=== PATIENT | female | born 1940 | race Caucasian/White ===

== ENCOUNTER → 2018-02-13 | Outpatient (CLI) | payer MEDICARE ==
[2018-02-13 09:50] LABS: Blood Urea Nitrogen 11 mg/dL (7-17)
--- NOTE | 2018-02-13 13:48 | MR ---
EXAMINATION TYPE: MR brain wo/w con DATE OF EXAM: 02/13/2018 COMPARISON: HISTORY: Headache TECHNIQUE: Multiplanar, multisequence images of the brain and brainstem is performed without and with IV contras t, utilizing 5 mL intravenous Gadavist . FINDINGS: Diffusion weighted images demonstrate no evidence of a recent infarct or other diffusion ab normality. There is no extra-axial fluid collection. Confluent and scattered hyperintensities are pr esent in the periventricular, juxtacortical, subcortical and deep white matter on inversion recovery and T2-weighted sequences. Approximately 40 lesions are present. Largest in the left frontal white ma tter measures approximately 6-7 mm on axial image 20. The ventricular system and cisternal spaces are normal in size and appearance. The brain volume is age appropriate. There is a signal void on inversion recovery T2-weighted sequences which shows intermediate signal on T1-weighted images and enhancement on contrast administration along the region of the origin of the posterior inferior cerebellar artery, the abnormality measures approximately 11 mm x 8 mm x 6 mm caus es mass effect on the medulla from the left side at the base of the laura. 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 T2 hyperintense focus just lat eral to the temporomandibular joint on the right may represent a ganglion or meniscal cyst measuring 10 mm axial image 7. The orbits show symmetric appearance. Mild inflammatory change present within the ethmoid air cells r ight greater than left, maxillary sinus. Atrophy is likely age-related. 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 Nonspecif ic white matter demyelination could be due to chronic small vessel ischemia. There is age-related atr ophy. Indeterminate abnormality involving the temporal bone as described, additional findings above. Head CT may be of benefit. Sinus disease, mastoiditis. A Document Only message has been documented for Loraine Olson DO in the [employer] system on 02/13/2018 1:46 PM, Message ID [id number].
== END | disposition home or self-care (01) ==
LOC: RADMRIMAIN 09:17
PROVIDERS: ATTEND Family Medicine
DX: R51 Headache (principal); G81.90 Hemiplegia, unspecified affecting unspecified side
CPT/HCPCS: 82565; 84520; 70553; 36415; A9585

== ENCOUNTER → 2018-02-23 | Outpatient (CLI) | payer MEDICARE ==
--- NOTE | 2018-02-24 22:13 | MR ---
EXAMINATION TYPE: MR cervical spine wo con DATE OF EXAM: 02/23/2018 COMPARISON: None HISTORY: headaches, sharp pain in neck, unsteady gait TECHNIQUE: Multiplanar, multisequence images of the cervical spine were acquired. Cervical vertebra have normal alignment. There is degenerative disc space narrowing throughout the ce rvical spine and more at levels from C4 to C7. There are small posterior endplate spurs at C4-5 C5-6 C6-7. There is no spinal stenosis. There is developmentally adequate spinal canal. Cervical spinal co rd has normal signal pattern. There is no edema. Brainstem appears normal. There is no spinal stenosi s. There is no evidence of cervical paraspinal mass. There is mild hypertrophic facet arthropathy. IMPRESSION: Mild spondylotic multilevel changes. No fracture. No spinal stenosis.
== END | disposition home or self-care (01) ==
LOC: RADMRIMAIN 21:44
PROVIDERS: ATTEND Specialist
DX: M47.22 Other spondylosis with radiculopathy, cervical region (principal); R51 Headache
CPT/HCPCS: 72141

== ENCOUNTER 2022-08-13 14:57 | Observation (INO) | payer MEDICARE ==
[2022-08-13] MEDS ORDERED: IPRATROPIUM-ALBUTEROL 3 ML NEB INHALATION STA ×2 (15:43→18:31)
[2022-08-13] MEDS ORDERED: MORPHINE SULFATE 4 MG/ML SYRINGE IVP STA (15:43)
--- NOTE | 2022-08-13 15:44 | ED ---
Chest Pain HPI - General Chief Complaint: Chest Pain Stated Complaint: chest pain Time Seen by Provider: 08/13/22 15:07 Source: patient, RN notes reviewed, old records reviewed Mode of arrival: wheelchair Limitations: no limitations - History of Present Illness Initial Comments: This is a 39-year-old female to the emergency department for evaluation of chest pain. Patient. Patient of fall about 10 days ago where she landed on her chest wall and has had increasing pain with breathing and pain with palpation stents. Patient has not had any fevers but does have increased cough congestion was seen at her OB doctor and sent ER for further evaluation today MD Complaint: chest pain -: hour(s) Onset: during rest, during exertion Pain Location: substernal Pain Radiation: none Severity: moderate Severity scale (1-10): 7 Quality: sharp Consistency: constant Improves With: nothing Worsens With: nothing Other Symptoms: cough, palpitations Treatments Prior to Arrival: none - Related Data Allergies Allergy/AdvReac Type Severity Reaction Status Date / Time Penicillins Allergy Anaphylaxis Verified 08/13/22 15:04 Review of Systems ROS Statement: Those systems with pertinent positive or pertinent negative responses have been documented in the HPI. ROS Other: All systems not noted in ROS Statement are negative. EKG Findings - EKG Comments: EKG Findings:: EKG is sinus 93 NM 188 QRS 92 QTC 383 Past Medical History Past Medical History: Hypertension Additional Past Medical History / Comment(s): brain any History of Any Multi-Drug Resistant Organisms: None Reported Past Surgical History: Back Surgery Past Psychological History: No Psychological Hx Reported Smoking Status: Current every day smoker Past Alcohol Use History: Occasional Past Drug Use History: None Reported General Exam Limitations: no limitations General appearance: alert, in no apparent distress, anxious Head exam: Present: atraumatic, normocephalic, normal inspection Eye exam: Present: normal appearance, PERRL, EOMI. Absent: scleral icterus, conjunctival injection, periorbital swelling ENT exam: Present: normal exam, mucous membranes moist Neck exam: Present: normal inspection. Absent: tenderness, meningismus, lymphadenopathy Respiratory exam: Present: respiratory distress, wheezes, accessory muscle use, decreased breath sounds, prolonged expiratory. Absent: rales, rhonchi, stridor Cardiovascular Exam: Present: regular rate, normal rhythm, normal heart sounds. Absent: systolic murmur, diastolic murmur, rubs, gallop, clicks GI/Abdominal exam: Present: soft, normal bowel sounds. Absent: distended, te nderness, guarding, rebound, rigid Extremities exam: Present: normal inspection, full ROM, normal capillary refill. Absent: tenderness, pedal edema, joint swelling, calf tenderness Back exam: Present: normal inspection Neurological exam: Present: alert, oriented X3, CN II-XII intact Psychiatric exam: Present: normal affect, normal mood Skin exam: Present: warm, dry, intact, normal color. Absent: rash Course Vital Signs 08/13/22 08/13/22 08/13/22 14:59 16:15 16:23 Temperature 97.7 F Pulse Rate 96 71 76 Respiratory 24 18 18 Rate Blood Pressure 162/106 O2 Sat by Pulse 93 L Oximetry 08/13/22 08/13/22 16:28 17:41 Temperature Pulse Rate 75 69 Respiratory 20 18 Rate Blood Pressure 158/89 161/83 O2 Sat by Pulse 94 L 94 L Oximetry - Reevaluation(s) Reevaluation #1: 08/13/22 16:19 Medical record is reviewed Reevaluation #2: 08/13/22 16:19 Patient still has persistent pain here in the ER Reevaluation #3: 08/13/22 16:19 Patient informed results and questions answered Reevaluation #4: 08/13/22 16:19 Was pt. sent in by a medical professional or institution? @ -no Did you speak to anyone other than the patient for history? @ -no Did you review nursing and triage notes? @ -agree Were old charts reviewed? @ -no Differential Diagnosis? @ -prior EKG interpreted by me (3pts min.)? @ -yes X-rays interpreted by me (1pt min.)? @ -yes CT interpreted by me (1pt min.)? @ -yes negative for acute disease no PE U/S interpreted by me (1pt. min.)? @ -no What testing was considered but not performed? (CT, X-rays, U/S, labs)? Why? @ -no What meds were considered but not given? Why? @ -no Did you discuss the management of the patient with other professionals? @ -no Did you reconcile home meds? @ -no Was smoking cessation discussed for >3mins.? @ -no Was critical care preformed (if so, how long)? @ -no Were there social determinants of health that impacted care today? How? (Homelessness, low income, unemployed, alcoholism, drug addiction, transportation, low edu. Level, literacy, decrease access to med. care, residential, rehab)? @ -no Was there de-escalation of care discussed even if they declined? (Discuss DNR or withdrawal of care, Hospice)? @ -no What co-morbidities impacted this encounter? (DM, HTN, Smoking, COPD, CAD, Canc er, CVA, Hep., AIDS, mental health diagnosis, sleep apnea, morbid obesity)? @ -none Was patient admitted / discharged? @ -81 female to the emergency department for evaluation patient presents today for evaluation regards to chest pain. Patient was sent to ER by urgent care for evaluation of chest pain for computed tomography scan rule out PE no PE patient does have pleuritic changes we will admit for COPD exacerbation trending a mildly elevated troponin Admitted Undiagnosed new problem with uncertain prognosis? @ -no Drug Therapy requiring intensive monitoring for toxicity (Heparin, Nitro, Insulin, Cardizem)? @ -no Were any procedures done? @ -no Diagnosis/symptom? @ -Acute chest pain, rule out ACS, chest wall pain and pleurisy and COPD Acute, or Chronic, or Acute on Chronic? @ -Acute on chronic Uncomplicated (without systemic symptoms) or Complicated (systemic symptoms)? @ -complicated Side effects of treatment? @ -no Exacerbation, Progression, or Severe Exacerbation] @ -no Poses a threat to life or bodily function? @ -Cath of chest pain is ACS and COPD with hypoxia Reevaluation #5: 08/13/22 16:19 Differential Chest Pain: Stable Angina, Unstable Angina, STEMI, NSTEMI Aortic Dissection, Pneumothorax, Musculoskeletal, Esophageal Spasm GERD, Cholecystitis, Pancreatitis, Zoster, this is not meant to be an all-inclusive list. Differential Dyspnea: Coronary syndrome, arrhythmia, tamponade, asthma, COPD, pulmonary embolism, pneumonia, pneumothorax, pulmonary effusion, anaphylaxis, diabetic ketoacidosis, flailed chest, pulmonary contusion, diaphragmatic rupture, anemia, neuromuscular, this is not meant to be an all-inclusive list. Studies Chest x-ray interpreted by me as negative for acute disease CT angios chest interpreted by me is negative for PE or acute disease - Consultations Consultation #1: Spoke with Admitting physician to agree to admit the patient Chest Pain MDM - MDM 81 female to the ER for evaluation of chest pain anterior chest pain special she takes a deep breath and pleuritic-type chest pain. Patient be admitted for breathing treatment steroids and pain control Critical Care Time Critical Care Time: Yes Total Critical Care Time: 31 Disposition Clinical Impression: Atypical chest pain, Chest pain, Costochondritis, Acute exacerbation of chronic obstructive pulmonary disease (COPD), Pleurisy Disposition: ADMITTED IP TO THIS HOSP Condition: Good Is patient prescribed a controlled substance at d/c from ED?: No Referrals: Loraine Olson DO [Primary Care Provider] - 1-2 days Time of Disposition: 18:35
--- NOTE | 2022-08-13 16:10 | XR ---
EXAMINATION TYPE: XR chest 2V DATE OF EXAM: 08/13/2022 COMPARISON: None HISTORY: 81-year-old female with chest pain and shortness of breath TECHNIQUE: PA and lateral views FINDINGS: Heart normal size. Atherosclerotic arch calcifications. Hyperinflation with interstitial prominence. Suspected prominent skin fold projecting at the lower right lung. No consolidation or pleural effusio n. IMPRESSION: COPD. Prominent skinfold projecting at the right lower lung. No acute process seen.
[2022-08-13 16:44] LABS: ALT 16 U/L (4-34); AST 22 U/L (14-36); African American GFR (CKD) >90 (>60 ml/min/1.73 sqM); Albumin 4.3 g/dL (3.5-5.0); Alkaline Phosphatase 50 U/L (38-126); Anion Gap 5 mmol/L; Blood Urea Nitrogen 13 mg/dL (7-17); Calcium 9.4 mg/dL (8.4-10.2); Carbon Dioxide 29 mmol/L (22-30); Chloride 98 mmol/L (98-107); Glucose 93 mg/dL (74-99); Lipase 73 U/L (23-300); Magnesium 1.8 mg/dL (1.6-2.3); Non-African American GFR(CKD) 87 (>60 ml/min/1.73 sqM); Potassium 4.3 mmol/L (3.5-5.1); Sodium 132 mmol/L (137-145); Total Bilirubin 0.9 mg/dL (0.2-1.3)
[2022-08-13 16:50] LABS: Partial Thromboplastin Time 25.1 sec (22.0-30.0)
[2022-08-13 17:04] LABS: Basophils % (A) 0 %; Eosinophils # (A) 0.1 k/uL (0-0.7); Eosinophils % (A) 1 %; HGB 14.9 gm/dL (11.4-16.0); Lymphocytes # (A) 1.9 k/uL (1.0-4.8); Lymphocytes % (A) 19 %; MCH 30.8 pg (25.0-35.0); MCV 93.1 fL (80.0-100.0); Mean Platelet Volume 7.3; Monocytes # (A) 0.6 k/uL (0-1.0); Monocytes % (A) 6 %; Neutrophils # (A) 7.5 k/uL (1.3-7.7); Neutrophils % (A) 74 %; Platelet Count 323 k/uL (150-450); RBC 4.83 m/uL (3.80-5.40); RDW 14.5 % (11.5-15.5); WBC 10.2 k/uL (3.8-10.6)
--- NOTE | 2022-08-13 17:50 | CT ---
EXAMINATION TYPE: CT angio chest DATE OF EXAM: 08/13/2022 COMPARISON: 08/13/2022 HISTORY: 81-year-old female chest pain and SOB. Injury to chest x1 week ago TECHNIQUE: Contiguous axial scanning of the chest performed with IV Contrast, patient injected with 5 7 mL of Isovue 300. Coronal/sagittal MIP reconstructions performed. CT DLP: 183.3 mGycm Automated exposure control for dose reduction was used. FINDINGS: Heart normal size without pericardial effusion. No flattening of the interventricular septum or reflu x of contrast into hepatic veins. RCA coronary artery calcifications are present with mild aortic zoie vular calcifications. Moderate atherosclerotic calcifications aortic arch and descending thoracic aorta. Mixing artifacts a re noted. However, no dissection is seen. There is ectasia of the upper descending thoracic aorta 3.0 cm. Satisfactory opacification of the pulmonary arterial system. There is breathing motion artifact in th e lower lungs. Segmental and more distal arterial branches here are nondiagnostic due to the degree o f motion. No evidence for pulmonary embolus in the upper midlungs. There is an enlarged right hilar lymph node measuring 1.8 cm that may be reactive/post inflammatory. Reassess at a three-month follow-up. There is moderate diffuse bronchial wall thickening. Moderate to advanced emphysema is noted. No cons olidation or pleural effusion. Strandy atelectasis or scarring at the left lung base and also at the anterior right middle lobe. No consolidation or pleural effusion. Visualized upper abdomen shows bilateral renal calculi measuring up to 5 mm. Moderate atherosclerotic changes at the upper abdominal aorta. Possible severe stenoses at the proximal bilateral renal arter ies. Bones: Moderate degenerative disc disease mid to lower thoracic spine. Osteopenia. IMPRESSION: 1. COPD WITH MODERATE TO ADVANCED EMPHYSEMA. 2. BREATHING MOTION ARTIFACT LIMITING ASSESSMENT FOR PULMONARY EMBOLI IN THE LOWER LUNGS. THE SEGMENT AL AND MORE DISTAL ARTERIAL BRANCHES HERE ARE NONDIAGNOSTIC. OTHERWISE, NO EVIDENCE FOR PULMONARY EMB OLUS IN THE UPPER MID LUNGS. 3. AN ENLARGED 1.8 CM RIGHT HILAR LYMPH NODE MAY BE REACTIVE OR POSTINFLAMMATORY. THREE-MONTH FOLLOW- UP CT CHEST TO REASSESS. 4. MODERATE ATHEROSCLEROTIC CHANGES CONTINUE INTO THE UPPER ABDOMINAL AORTA. THERE MAY BE SEVERE BILA TERAL RENAL ARTERY STENOSES.
[2022-08-13] MEDS ORDERED: KETOROLAC 15 MG/ML 1 ML VIAL IVP STA (18:31)
[2022-08-13] MEDS ORDERED: methylPREDNISolone SOD SUCCI 125 MG/2 ML VIAL IV STA (18:31)
[2022-08-13] MEDS ORDERED: HYDROmorphone 1 MG/ML 1 ML SYRINGE IVP PRN (18:31)
[2022-08-13] MEDS ORDERED: HYDROmorphone 1 MG/ML 1 ML SYRINGE IVP STA (18:31)
[2022-08-13] MEDS ORDERED: SODIUM CHLORIDE 0.9% 1,000 ML IV STA ×2 (18:33)
[2022-08-13] MEDS ORDERED: SODIUM CHLORIDE 0.9% 500 ML 500 ML IV STA (18:33)
[2022-08-13] MEDS: ALBUTEROL NEBULIZED 2.5 MG/3 ML INHALATION SCH (20:04)
[2022-08-13] MEDS ORDERED: NALOXONE 0.4 MG/ML 1 ML VIAL IV PRN (20:26)
[2022-08-13] MEDS ORDERED: ONDANSETRON 4 MG/2 ML VIAL IVP PRN (20:26)
[2022-08-13] MEDS: SODIUM CHLORIDE 0.9% 1,000 ML IV SCH (20:30)
[2022-08-14] MEDS: methylPREDNISolone SOD SUCCI 125 MG/2 ML VIAL IV SCH ×4 (00:44→18:13)
[2022-08-14 06:36] LABS: Basophils % (A) 0 %; Eosinophils % (A) 0 %; HGB 15.3 gm/dL (11.4-16.0); Lymphocytes # (A) 0.8 k/uL (1.0-4.8); Lymphocytes % (A) 13 %; MCH 29.6 pg (25.0-35.0); MCHC 31.1 g/dL (31.0-37.0); MCV 95.3 fL (80.0-100.0); Mean Platelet Volume 7.4; Monocytes # (A) 0.1 k/uL (0-1.0); Monocytes % (A) 2 %; Neutrophils # (A) 5.1 k/uL (1.3-7.7); Neutrophils % (A) 84 %; Platelet Count 389 k/uL (150-450); RBC 5.15 m/uL (3.80-5.40); RDW 14.7 % (11.5-15.5); WBC 6.1 k/uL (3.8-10.6)
[2022-08-14 06:47] LABS: ALT 17 U/L (4-34); AST 22 U/L (14-36); African American GFR (CKD) >90 (>60 ml/min/1.73 sqM); Albumin 4.1 g/dL (3.5-5.0); Albumin/Globulin Ratio 1.5; Alkaline Phosphatase 49 U/L (38-126); Anion Gap 5 mmol/L; Blood Urea Nitrogen 15 mg/dL (7-17); Calcium 9.2 mg/dL (8.4-10.2); Carbon Dioxide 28 mmol/L (22-30); Chloride 102 mmol/L (98-107); Globulin 2.8 g/dL; Glucose 127 mg/dL (74-99); Magnesium 1.9 mg/dL (1.6-2.3); Non-African American GFR(CKD) >90 (>60 ml/min/1.73 sqM); Phosphorus 3.9 mg/dL (2.5-4.5); Sodium 135 mmol/L (137-145); Total Bilirubin 1.2 mg/dL (0.2-1.3); Total Protein 6.9 g/dL (6.3-8.2)
[2022-08-14 07:27] VITALS: RESP 18
[2022-08-14] MEDS ORDERED: IPRATROPIUM-ALBUTEROL 3 ML NEB INHALATION PRN (08:18)
[2022-08-14] MEDS: ALBUTEROL NEBULIZED 2.5 MG/3 ML INHALATION SCH (08:20)
[2022-08-14] MEDS: IPRATROPIUM-ALBUTEROL 3 ML NEB INHALATION SCH ×4 (08:28→20:05)
[2022-08-14] MEDS: SYMBICORT 160-4.5 MCG INHALER INHALATION SCH ×2 (08:44→20:05)
[2022-08-14] MEDS: SODIUM CHLORIDE 0.9% 1,000 ML IV SCH (10:07)
--- NOTE | 2022-08-14 10:31 | P.CRDCN ---
History of Present Illness History of present illness: HISTORY OF PRESENTING ILLNESS Patient is a pleasant 81-year-old female with a history of hypertension, tobacco abuse, COPD. Patient had a mechanical fall where she fell into her chest appro ximately 10 days ago. She states this was a mechanical fall. She has had chest pain since that time. Mainly chest pain worse with inspiration. She was having worsened chest pain and went to urgent care and recommended to go to ER. CT showed no significant fracture, COPD with advanced emphysema, 1.8 cm hilar lymph node, moderate atherosclerotic changes of the upper abdominal aorta and may be s evere bilateral renal artery stenosis. She was given something for pain which did help significantly however back to having significant pain. Admits to prior cardiac workup including stress test a few years ago however nothing recent. EKG showed sinus tachycardia with PACs. REVIEW OF SYSTEMS At the time of my exam: CONSTITUTIONAL: Denies fever or chills. CARDIOVASCULAR: +chest pain, +chronic shortness of breath, no orthopnea, PND or palpitations. RESPIRATORY: Denies cough. GASTROINTESTINAL: Denies abdominal pain, diarrhea, constipation, nausea or vomiting. MUSCULOSKELETAL: Denies myalgias. NEUROLOGIC: Denies numbness, tingling or weakness. ENDOCRINE: Denies fatigue, weight change, polydipsia or polyurina. GENITOURINARY: Denies burning, hematuria or urgency with micturation. HEMATOLOGIC: Denies history of anemia or bleeding. PHYSICAL EXAMINATION Vital signs reviewed. CONSTITUTIONAL: No apparent distress. HEENT: Head is normocephalic. Pupils are equal, round. Sclerae anicteric. Mucous membranes of the mouth are moist. No JVD. No carotid bruit. CHEST EXAMINATION: Lungs are clear to auscultation. + chest wall tenderness is noted on palpation and with deep breathing. HEART EXAMINATION: Regular rate and rhythm. S1, S2 heard. No murmurs, gallops or rub. ABDOMEN: Soft, nontender. Positive bowel sounds. EXTREMITIES: 2+ peripheral pulses, no lower extremity edema and no calf t enderness. NEUROLOGIC EXAMINATION: Patient is awake, alert and oriented x3. ASSESSMENT 1. Noncardiac, musculoskeletal chest pain related to recent fall 2. Recent fall, mechanical 3. COPD 4. Dyspnea 5. Atherosclerotic changes of the upper abdominal aorta, possible renal artery stenosis 6. Tobacco abuse 7. Sinus tachycardia related to pain PLAN Patient with atypical chest pain. Related to recent fall and noncardiac etiology. CT and troponins negative. Patient may be discharged home from a cardiology standpoint. If patient remains would perform echo for completeness. Follow-up outpatient in 1-2 weeks. Tobacco cessation advised. Past Medical History Past Medical History: Hypertension Additional Past Medical History / Comment(s): brain any History of Any Multi-Drug Resistant Organisms: None Reported Past Surgical History: Back Surgery Past Anesthesia/Blood Transfusion Reactions: No Reported Reaction Past Psychological History: No Psychological Hx Reported Smoking Status: Current every day smoker Past Alcohol Use History: Occasional Past Drug Use History: None Reported Medications and Allergies Home Medications Medication Instructions Recorded Confirmed Type Anxiety Med (Unknown) 1 tab PO HS 08/13/22 08/13/22 History Aspirin EC [Ecotrin Low Dose] 81 mg PO HS 08/13/22 08/13/22 History Blood Pressure Med (Unknown) 1 tab PO DAILY 08/13/22 08/13/22 History Bone Density Med (Unknown) 1 tab PO HS 08/13/22 08/13/22 History Calcium Carbonate [Calcium] 600 mg PO W/LUNCH 08/13/22 08/13/22 History Cetirizine HCl [Zyrtec] 10 mg PO HS 08/13/22 08/13/22 History Ergocalciferol (Vitamin D2) 1,250 mcg PO DIRECTED 08/13/22 08/13/22 History [Drisdol (50,000 Iu)] Magnesium Oxide [Magnesium] 500 mg PO W/LUNCH 08/13/22 08/13/22 History [place]-3/Dha/Epa/Fish Oil [Fish Oil 1 cap PO BID-W/MEALS 08/13/22 08/13/22 History 1,000 mg Softgel] Allergies Allergy/AdvReac Type Severity Reaction Status Date / Time Penicillins Allergy Anaphylaxis Verified 08/13/22 18:51 Physical Exam Vitals: Vital Signs Temp Pulse Pulse Resp BP BP Pulse Ox 08/14/22 08:41 92 08/14/22 08:21 92 08/14/22 08:00 90 18 08/14/22 07:00 97.9 F 90 18 162/74 90 L 08/14/22 03:51 97.9 F 86 17 131/68 90 L 08/14/22 02:11 75 18 08/13/22 21:27 97.6 F 75 18 159/69 91 L 08/13/22 21:01 98.4 F 72 18 137/88 97 08/13/22 20:22 70 08/13/22 20:08 71 20 08/13/22 17:41 69 18 161/83 94 L 08/13/22 16:28 75 20 158/89 94 L 08/13/22 16:23 76 18 08/13/22 16:15 71 18 08/13/22 14:59 97.7 F 96 24 162/106 93 L Intake and Output 08/13/22 08/14/22 08/14/22 22:59 06:59 14:59 Other: Voiding Method Toilet Toilet # Voids 1 Weight 48.081 kg Results 08/14/22 05:57 08/14/22 05:57 Cardiac Enzymes 08/13/22 08/13/22 08/13/22 Range/Units 16:19 16:19 21:10 AST 22 (14-36) U/L Troponin I 0.024 0.025 (0.000-0.034) ng/mL 08/13/22 08/14/22 Range/Units 23:39 05:57 AST 22 (14-36) U/L Troponin I 0.020 (0.000-0.034) ng/mL Coagulation 08/13/22 Range/Units 16:19 PT 11.0 (9.0-12.0) sec APTT 25.1 (22.0-30.0) sec CBC 08/13/22 08/14/22 Range/Units 16:19 05:57 WBC 10.2 6.1 (3.8-10.6) k/uL RBC 4.83 5.15 (3.80-5.40) m/uL Hgb 14.9 15.3 (11.4-16.0) gm/dL Hct 45.0 49.0 H (34.0-46.0) % Plt Count 323 389 (150-450) k/uL Comprehensive Metabolic Panel 08/13/22 08/14/22 Range/Units 16:19 05:57 Sodium 132 L 135 L (137-145) mmol/L Potassium 4.3 5.0 (3.5-5.1) mmol/L Chloride 98 102 (98-107) mmol/L Carbon Dioxide 29 28 (22-30) mmol/L BUN 13 15 (7-17) mg/dL Creatinine 0.57 0.48 L (0.52-1.04) mg/dL Glucose 93 127 H (74-99) mg/dL Calcium 9.4 9.2 (8.4-10.2) mg/dL AST 22 22 (14-36) U/L ALT 16 17 (4-34) U/L Alkaline Phosphatase 50 49 (38-126) U/L Total Protein 7.0 6.9 (6.3-8.2) g/dL Albumin 4.3 4.1 (3.5-5.0) g/dL Current Medications Generic Name Dose Route Start Last Admin Trade Name Freq PRN Reason Stop Dose Admin Albuterol/Ipratropium 3 ml 08/14/22 12:00 08/14/22 08:28 Ipratropium-Albuterol 3 Ml Neb INHALATION 3 ml RT-QID KIMBERLEY Administration Albuterol/Ipratropium 3 ml 08/14/22 08:18 Ipratropium-Albuterol 3 Ml Neb INHALATION RT-Q2H PRN Shortness Of Breath Or Wheezing Aspirin 81 mg 08/14/22 21:00 Aspirin 81 Mg PO HS [facility] Budesonide/Formoterol Fumarate 2 puff 08/14/22 20:00 08/14/22 08:44 Symbicort 160-4.5 Mcg Inhaler INHALATION 2 puff RT-BID KIMBERLEY Administration Calcium Carbonate/Glycine 500 mg 08/14/22 12:30 Calcium Carbonate 500 Mg Chewable PO W/LUNCH [facility] Ergocalciferol 1,250 mcg 08/14/22 09:45 Ergocalciferol 1,250 Mcg (50,000 Iu) Capsule PO DIRECTED [facility] Hydromorphone HCl 1 mg 08/13/22 18:31 Hydromorphone 1 Mg/Ml 1 Ml Syringe IVP Q4HR PRN Pain Sodium Chloride 1,000 mls @ 75 mls/hr 08/13/22 20:30 08/14/22 10:07 Saline 0.9% IV 75 mls/hr .[id number] KIMBERLEY Administration Loratadine 10 mg 08/14/22 21:00 Loratadine 10 Mg Tab PO HS [facility] Magnesium Oxide 400 mg 08/14/22 12:30 Magnesium Oxide 400 Mg Tab PO W/LUNCH KIMBERLEY Methylprednisolone Sodium Succinate 60 mg 08/14/22 00:00 08/14/22 05:41 Methylprednisolone Sod Succi 125 Mg/2 Ml Vial IV 60 mg Q6HR KIMBERLEY Administration Naloxone HCl 0.2 mg 08/13/22 20:26 Naloxone 0.4 Mg/Ml 1 Ml Vial IV Q2M PRN Opioid Reversal Non-Formulary Medication 1 tab 08/14/22 21:00 Anxiety Med (Unknown) PO HS KIMBERLEY Ondansetron HCl 4 mg 08/13/22 20:26 Ondansetron 4 Mg/2 Ml Vial IVP Q8HR PRN Nausea And Vomiting Intake and Output 08/13/22 08/14/22 08/14/22 22:59 06:59 14:59 Other: Voiding Method Toilet Toilet # Voids 1 Weight 48.081 kg 08/14/22 05:57 08/14/22 05:57
--- NOTE | 2022-08-14 10:32 | P.CNPUL ---
History of Present Illness Consult date: 08/14/22 Requesting physician: Erin Otto Reason for consult: dyspnea, chest pain Chief complaint: Anterior chest pain, shortness of breath History of present illness: This is a very pleasant 81-year-old female patient with a known history of hypertension and chronic and ongoing tobacco dependence of greater than 50 years. Approximately 10-11 days ago she had tripped and fell hitting her chest against a workbench. The pain initially somewhat subsided then recurred and she presented here to the emergency room yesterday for worsening pain on inhalation and shortness of breath. Chest x-ray revealed COPD but no acute pulmonary process. CT angiogram revealed evidence of COPD with moderate to advanced emphysema. Breathing motion artifact limited assessment of pulmonary emboli but there was no central emboli noted. There is an enlarged 1.8 cm right hilar lymph node possibly reactive but warrants follow-up. Severe bilateral renal artery stenosis. Moderate atherosclerotic changes in the upper abdominal aorta. White count 6.1. Hemoglobin 15.3. Platelets 389. Sodium 135. Potassium 5.0. Bicarb 20. BUN 15. Creatinine 0.48. Glucose 127. Troponins were negative 3. ProBNP 304. Lipase 73. She is seen today in consultation on the regular medical floor. She is currently sitting up in bed. She is uncomfortable with some anterior chest wall tenderness to palpation. Difficulty with deep inhalation. O2 saturation at 90% on room air. Afebrile. Review of Systems REVIEW OF SYSTEMS: CONSTITUTIONAL: Denies any recent significant weight loss or weight gain. EYES: Denies change in vision. EARS, NOSE, MOUTH, THROAT: Denies headaches, denies sore throat. CARDIOVASCULAR: Positive for anterior chest wall pain, no palpitations or syncopal episodes. RESPIRATORY: Positive for shortness of breath, cough, congestion no hemoptysis. GASTROINTESTINAL: Denies change in appetite, denies abdominal pain GENITOURINARY: Denies hematuria, denies infections. MUSKULOSKELETAL: Denies pain, denies swelling. INTEGUMENTARY: Denies rash, denies eczema. NEUROLOGICAL: Denies recent memory loss, no recent seizure activity. PSYCHIATRIC: Denies anxiety, denies depression. HEMATOLOGIC/LYMPHATIC: Denies anemia, denies enlarged lymph nodes. Past Medical History Past Medical History: Hypertension Additional Past Medical History / Comment(s): brain any History of Any Multi-Drug Resistant Organisms: None Reported Past Surgical History: Back Surgery Past Anesthesia/Blood Transfusion Reactions: No Reported Reaction Past Psychological History: No Psychological Hx Reported Smoking Status: Current every day smoker Past Alcohol Use History: Occasional Past Drug Use History: None Reported Medications and Allergies Home Medications Medication Instructions Recorded Confirmed Type Anxiety Med (Unknown) 1 tab PO HS 08/13/22 08/13/22 History Aspirin EC [Ecotrin Low Dose] 81 mg PO HS 08/13/22 08/13/22 History Blood Pressure Med (Unknown) 1 tab PO DAILY 08/13/22 08/13/22 History Bone Density Med (Unknown) 1 tab PO HS 08/13/22 08/13/22 History Calcium Carbonate [Calcium] 600 mg PO W/LUNCH 08/13/22 08/13/22 History Cetirizine HCl [Zyrtec] 10 mg PO HS 08/13/22 08/13/22 History Ergocalciferol (Vitamin D2) 1,250 mcg PO DIRECTED 08/13/22 08/13/22 History [Drisdol (50,000 Iu)] Magnesium Oxide [Magnesium] 500 mg PO W/LUNCH 08/13/22 08/13/22 History [place]-3/Dha/Epa/Fish Oil [Fish Oil 1 cap PO BID-W/MEALS 08/13/22 08/13/22 History 1,000 mg Softgel] Allergies Allergy/AdvReac Type Severity Reaction Status Date / Time Penicillins Allergy Anaphylaxis Verified 08/13/22 18:51 Physical Exam Vitals: Vital Signs Temp Pulse Pulse Resp BP BP Pulse Ox 08/14/22 08:41 92 08/14/22 08:21 92 08/14/22 08:00 90 18 08/14/22 07:00 97.9 F 90 18 162/74 90 L 08/14/22 03:51 97.9 F 86 17 131/68 90 L 08/14/22 02:11 75 18 08/13/22 21:27 97.6 F 75 18 159/69 91 L 08/13/22 21:01 98.4 F 72 18 137/88 97 08/13/22 20:22 70 08/13/22 20:08 71 20 08/13/22 17:41 69 18 161/83 94 L 08/13/22 16:28 75 20 158/89 94 L 08/13/22 16:23 76 18 08/13/22 16:15 71 18 08/13/22 14:59 97.7 F 96 24 162/106 93 L Intake and Output 08/13/22 08/14/22 08/14/22 22:59 06:59 14:59 Other: Voiding Method Toilet Toilet # Voids 1 Weight 48.081 kg GENERAL EXAM: Alert, frail 81-year-old female, on room air, fairly comfortable in no apparent distress. HEAD: Normocephalic. EYES: Normal reaction of pupils, equal size. NOSE: Clear with pink turbinates. THROAT: No erythema or exudates. NECK: No masses, no JVD. CHEST: No chest wall deformity. LUNGS: Equal air entry with few scattered rhonchi, diminished. CVS: S1 and S2 normal with no audible murmur, regular rhythm. ABDOMEN: No hepatosplenomegaly, normal bowel sounds, no guarding or rigidity. SPINE: No scoliosis or deformity SKIN: No rashes CENTRAL NERVOUS SYSTEM: No focal deficits, tone is normal in all 4 extremities. EXTREMITIES: There is no peripheral edema. No clubbing, no cyanosis. Peripheral pulses are intact. Results - Laboratory Findings CBC and BMP: 08/14/22 05:57 08/14/22 05:57 PT/INR, D-dimer PT 11.0 sec (9.0-12.0) 08/13/22 16:19 INR 1.0 (<1.2) 08/13/22 16:19 Abnormal lab findings: Abnormal Labs 08/13/22 08/14/22 08/14/22 16:19 05:57 05:57 Hct 49.0 H Lymphocytes # 0.8 L Sodium 132 L 135 L Creatinine 0.48 L Glucose 127 H - Diagnostic Findings Chest x-ray: image reviewed CT scan - chest: image reviewed Assessment and Plan Assessment: Acute anterior wall chest pain status post trauma secondary to trip and fall. No loss of consciousness. Acute exacerbation of chronic obstructive pulmonary disease Acute hypoxemic respiratory failure secondary to above Enlarged 1.8 cm right hilar lymph node possibly reactive or postinflammatory, to be followed up in the outpatient setting Chronic and ongoing tobacco dependence of greater than 50 years History of hypertension Renal artery stenosis Osteoporosis Plan: The patient was seen and evaluated Chest x-ray, CT chest, labs and medications reviewed Add DuoNeb inhalations, Symbicort, IV Solu-Medrol Add incentive spirometer and encourage increased use Add oxygen at 2 L/m per nasal cannula Titrate the FiO2 as tolerated Educated regarding the importance of complete smoking cessation NicoDerm patch will be offered Three-month follow-up computed tomography scan of the chest regarding right hilar lymph node We will continue to follow and make further recommendations based on her clinical status I have personally seen and examined the patient, performed the documentation and the assessment and plan as written. Number of minutes spent on the visit: 20.
[2022-08-14] MEDS: MAGNESIUM OXIDE 400 MG TAB PO SCH (12:52)
[2022-08-14] MEDS: CALCIUM CARBONATE 500 MG CHEWABLE PO SCH (12:53)
[2022-08-14] MEDS: NICOTINE 14MG/24HR PATCH TRANSDERM SCH ×2 (12:53→13:26)
[2022-08-14] MEDS ORDERED: NON FORMULARY DRUG (Omega-3/Dha/Epa/Fish Oil [Fish Oil 1,000 Mg Softgel] 1 EACH Capsule) PO SCH (17:30)
--- NOTE | 2022-08-14 18:11 | P.HPIM ---
History of Present Illness H&P Date: 08/13/22 Chief Complaint: Chest pain/dyspnea 81-year-old female patient with a known history of hypertension and chronic and ongoing tobacco dependence of greater than 50 years. Approximately 10-11 days ago she had tripped and fell hitting her chest against a workbench. The pain in itially somewhat subsided then recurred and she presented here to the emergency room yesterday for worsening pain on inhalation and shortness of breath. Chest x-ray revealed COPD but no acute pulmonary process. CT angiogram revealed evidence of COPD with moderate to advanced emphysema. Breathing motion artifact limited assessment of pulmonary emboli but there was no central emboli noted. There is an enlarged 1.8 cm right hilar lymph node possibly reactive but warrants follow-up. Severe bilateral renal artery stenosis. Moderate atherosclerotic changes in the upper abdominal aorta. White count 6.1. Hemoglobin 15.3. Platelets 389. Sodium 135. Potassium 5.0. Bicarb 20. BUN 15. Creatinine 0.48. Glucose 127. Troponins were negative 3. ProBNP 304. Lipase 73. Review of Systems REVIEW OF SYSTEMS: CONSTITUTIONAL: No fever, no malaise, no fatigue. HEENT: No recent visual problems or hearing problems. Denied any sore throat. CARDIOVASCULAR: No chest pain, orthopnea, PND, no palpitations, no syncope. PULMONARY: No shortness of breath, no cough, no hemoptysis. GASTROINTESTINAL: No diarrhea, no nausea, no vomiting, no abdominal pain. NEUROLOGICAL: No headaches, no weakness, no numbness. HEMATOLOGICAL: Denies any bleeding or petechiae. GENITOURINARY: Denies any burning micturition, frequency, or urgency. MUSCULOSKELETAL/RHEUMATOLOGICAL: Denies any joint pain, swelling, or any muscle pain. ENDOCRINE: Denies any polyuria or polydipsia. The rest of the 14-point review of systems is negative. Past Medical History Past Medical History: Hypertension Additional Past Medical History / Comment(s): brain any History of Any Multi-Drug Resistant Organisms: None Reported Past Surgical History: Back Surgery Past Anesthesia/Blood Transfusion Reactions: No Reported Reaction Past Psychological History: No Psychological Hx Reported Smoking Status: Current every day smoker Past Alcohol Use History: Occasional Past Drug Use History: None Reported Medications and Allergies Home Medications Medication Instructions Recorded Confirmed Type Aspirin EC [Ecotrin Low Dose] 81 mg PO HS 08/13/22 08/13/22 History Calcium Carbonate [Calcium] 600 mg PO W/LUNCH 08/13/22 08/13/22 History Cetirizine HCl [Zyrtec] 10 mg PO HS 08/13/22 08/13/22 History Ergocalciferol (Vitamin D2) 1,250 mcg PO DIRECTED 08/13/22 08/13/22 History [Drisdol (50,000 Iu)] Magnesium Oxide [Magnesium] 500 mg PO W/LUNCH 08/13/22 08/13/22 History [place]-3/Dha/Epa/Fish Oil [Fish Oil 1 cap PO BID-W/MEALS 08/13/22 08/13/22 History 1,000 mg Softgel] Metoprolol Succinate (ER) [Toprol 100 mg PO DAILY 08/14/22 08/14/22 History XL] Raloxifene HCl 60 mg PO DAILY 08/14/22 08/14/22 History Sertraline [Zoloft] 25 mg PO DAILY 08/14/22 08/14/22 History Allergies Allergy/AdvReac Type Severity Reaction Status Date / Time Penicillins Allergy Anaphylaxis Verified 08/13/22 18:51 Physical Exam Vitals: Vital Signs Temp Pulse Pulse Resp BP BP Pulse Ox 08/14/22 08:41 92 08/14/22 08:21 92 08/14/22 07:00 97.9 F 90 18 162/74 90 L 08/14/22 03:51 97.9 F 86 17 131/68 90 L 08/14/22 02:11 75 18 08/13/22 21:27 97.6 F 75 18 159/69 91 L 08/13/22 21:01 98.4 F 72 18 137/88 97 08/13/22 20:22 70 08/13/22 20:08 71 20 08/13/22 17:41 69 18 161/83 94 L 08/13/22 16:28 75 20 158/89 94 L 08/13/22 16:23 76 18 08/13/22 16:15 71 18 08/13/22 14:59 97.7 F 96 24 162/106 93 L Intake and Output 08/13/22 08/14/22 08/14/22 22:59 06:59 14:59 Other: Voiding Method Toilet # Voids 1 Weight 48.081 kg PHYSICAL EXAMINATION: GENERAL: The patient is alert and oriented x3, not in any acute distress. Well developed, well nourished. HEENT: Pupils are round and equally reacting to light. EOMI. No scleral icterus. No conjunctival pallor. Normocephalic, atraumatic. No pharyngeal erythema. No thyromegaly. CARDIOVASCULAR: S1 and S2 present. No murmurs, rubs, or gallops. PULMONARY: Chest is clear to auscultation, no wheezing or crackles. ABDOMEN: Soft, nontender, nondistended, normoactive bowel sounds. No palpable organomegaly. MUSCULOSKELETAL: No joint swelling or deformity. EXTREMITIES: No cyanosis, clubbing, or pedal edema. NEUROLOGICAL: Gross neurological examination did not reveal any focal deficits. SKIN: No rashes. Results CBC & Chem 7: 08/14/22 05:57 08/14/22 05:57 Labs: Abnormal Lab Results - Last 24 Hours (Table) 08/13/22 08/14/22 08/14/22 Range/Units 16:19 05:57 05:57 Hct 49.0 H (34.0-46.0) % Lymphocytes # 0.8 L (1.0-4.8) k/uL Sodium 132 L 135 L (137-145) mmol/L Creatinine 0.48 L (0.52-1.04) mg/dL Glucose 127 H (74-99) mg/dL Thrombosis Risk Factor Assmnt - Choose All That Apply Any of the Below Risk Factors Present?: Yes Each Factor Represents 1 point: Abnormal pulmonary function (COPD) Other Risk Factors: Yes Each Risk Factor Represents 3 Points: Age 75 years or older Other congenital or acquired thrombophilia - If yes, enter type in comment: No Thrombosis Risk Factor Assessment Total Risk Factor Score: 4 Thrombosis Risk Factor Assessment Level: Moderate Risk Assessment and Plan Assessment: 1. Acute chest pain Patient with atypical chest pain. Related to recent fall and noncardiac etiology. CT and troponins negative. - Cardiology is consulted; patient recommendations 2. Acute exacerbation COPD Add DuoNeb inhalations, Symbicort, IV Solu-Medrol Add incentive spirometer and encourage increased use 3. Acute hypoxic respiratory failure Add oxygen at 2 L/m per nasal cannula Titrate the FiO2 as tolerated 4. Enlarged hilar lymph node; likely reactive; pulmonary recommending repeat CT of the chest in 3 months 5. Hypertension; metoprolol 100 mg daily 6.Depression ; Zoloft 25 mg daily DVT prophylaxis; SCDs CODE STATUS; full code
[2022-08-14] MEDS ORDERED: ANXIETY MED PO SCH (21:00)
[2022-08-14] MEDS ORDERED: LORATADINE 10 MG TAB PO SCH (21:00)
[2022-08-14] MEDS ORDERED: ASPIRIN 81 MG PO SCH (21:00)
[2022-08-15] MEDS: methylPREDNISolone SOD SUCCI 125 MG/2 ML VIAL IV SCH ×3 (00:05→15:02)
[2022-08-15] MEDS: SODIUM CHLORIDE 0.9% 1,000 ML IV SCH ×2 (06:33→15:03)
[2022-08-15] MEDS: SYMBICORT 160-4.5 MCG INHALER INHALATION SCH (08:23)
[2022-08-15] MEDS: IPRATROPIUM-ALBUTEROL 3 ML NEB INHALATION SCH ×3 (08:23→15:57)
[2022-08-15 08:32] VITALS: BP 140/71; TEMP 97.9
[2022-08-15] MEDS ORDERED: METOPROLOL SUCCINATE (ER) 100 MG TAB.ER.24H PO SCH (09:00)
[2022-08-15] MEDS ORDERED: RALOXIFENE 60 MG TAB PO SCH (09:00)
[2022-08-15] MEDS ORDERED: SERTRALINE 25 MG TAB PO SCH (09:00)
[2022-08-15] MEDS: NICOTINE 14MG/24HR PATCH TRANSDERM SCH (09:24)
--- NOTE | 2022-08-15 11:37 | P.PN ---
Subjective Progress Note Date: 08/15/22 This is a very pleasant 81-year-old female patient with a known history of hypertension and chronic and ongoing tobacco dependence of greater than 50 years. Approximately 10-11 days ago she had tripped and fell hitting her chest against a workbench. The pain initially somewhat subsided then recurred and she presented here to the emergency room yesterday for worsening pain on inhalation and shortness of breath. Chest x-ray revealed COPD but no acute pulmonary process. CT angiogram revealed evidence of COPD with moderate to advanced emphysema. Breathing motion artifact limited assessment of pulmonary emboli but there was no central emboli noted. There is an enlarged 1.8 cm right hilar lymph node possibly reactive but warrants follow-up. Severe bilateral renal artery stenosis. Moderate atherosclerotic changes in the upper abdominal aorta. White count 6.1. Hemoglobin 15.3. Platelets 389. Sodium 135. Potassium 5.0. Bicarb 20. BUN 15. Creatinine 0.48. Glucose 127. Troponins were negative 3. ProBNP 304. Lipase 73. She is seen today in consultation on the regular medical floor. She is currently sitting up in bed. She is uncomfortable with some anterior chest wall tenderness to palpation. Difficulty with deep inhalation. O2 saturation at 90% on room air. Afebrile. The patient is seen today 08/15/2022 in follow-up on the regular medical floor. She is currently sitting up in bed. Awake and alert in no acute distress. Still having some anterior chest wall pain. Still dyspneic with minimal conversation. Dyspneic with exertion. O2 saturation was 87% on room air after brief walk. 93% on 2 L nasal cannula. No new labs today. Echocardiogram pending. She is continued on DuoNeb inhalations, Symbicort, IV Solu-Medrol. NicoDerm patch in place. Objective - Vital Signs Vital signs: Vital Signs Temp 97.9 F 08/15/22 07:00 Pulse 92 08/15/22 08:37 Resp 18 08/15/22 07:00 BP 140/71 08/15/22 07:00 Pulse Ox 90 L 08/15/22 08:28 FiO2 Intake & Output 08/14/22 08/15/22 08/15/22 18:59 06:59 18:59 Other: Voiding Method Toilet Toilet # Voids 2 2 - Exam GENERAL EXAM: Alert, frail 81-year-old female, on 2 L/m per nasal cannula, comfortable in no apparent distress. HEAD: Normocephalic. EYES: Normal reaction of pupils, equal size. NOSE: Clear with pink turbinates. THROAT: No erythema or exudates. NECK: No masses, no JVD. CHEST: No chest wall deformity. LUNGS: Equal air entry with few scattered rhonchi, diminished. CVS: S1 and S2 normal with no audible murmur, regular rhythm. ABDOMEN: No hepatosplenomegaly, normal bowel sounds, no guarding or rigidity. SPINE: No scoliosis or deformity SKIN: No rashes CENTRAL NERVOUS SYSTEM: No focal deficits, tone is normal in all 4 extremities. EXTREMITIES: There is no peripheral edema. No clubbing, no cyanosis. Peripheral pulses are intact. - Labs CBC & Chem 7: 08/14/22 05:57 08/14/22 05:57 Assessment and Plan Assessment: Acute anterior wall chest pain status post trauma secondary to trip and fall. No loss of consciousness. 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 Number of minutes spent on the visit: 10.
--- NOTE | 2022-08-15 13:13 | CA ---
Transthoracic Echo Report Name: Steph Moreno Age: 81 Gender: F : 1940 Exam Date: 08/15/2022 08:32 Exam Location: [facility] Ht (in): 61 Wt (lb): 106 Ordering Physician: Howard Hernandez DO ([id number]) Attending/Referring Phys: Finisher Accordion Helen Whatley RDCS Procedure CPT: Indications: re: CP Cardiac Hx: Technical Quality: Fair Contrast 1: Total Dose (mL): Contrast 2: Total Dose (mL): MEASUREMENTS (Male / Female) Normal Values 2D ECHO LV Diastolic Diameter PLAX 3.8 cm 4.2 - 5.9 / 3.9 - 5.3 cm LV Systolic Diameter PLAX 2.6 cm IVS Diastolic Thickness 1.1 cm 0.6 - 1.0 / 0.6 - 0.9 cm LVPW Diastolic Thickness 1.1 cm 0.6 - 1.0 / 0.6 - 0.9 cm LV Relative Wall Thickness 0.6 RV Internal Dim ED PLAX 2.6 cm LA Volume 51.4 cm??? 18 - 58 / 22 - 52 cm??? DOPPLER AV Peak Velocity 147.8 cm/s AV Peak Gradient 8.7 mmHg AV Mean Velocity 101.9 cm/s AV Mean Gradient 4.7 mmHg AV Velocity Time Integral 30.6 cm LVOT Peak Velocity 130.0 cm/s LVOT Peak Gradient 6.8 mmHg LVOT Velocity Time Integral 31.5 cm MV Area PHT 4.3 cm??? Mitral E Point Velocity 96.3 cm/s Mitral A Point Velocity 90.9 cm/s Mitral E to A Ratio 1.1 MV Deceleration Time 176.7 ms MV E' Velocity 5.5 cm/s Mitral E to MV E' Ratio 17.6 TR Peak Velocity 181.5 cm/s TR Peak Gradient 13.2 mmHg Right Atrial Pressure 3.0 mmHg Pulmonary Artery Systolic Pressu 16.2 mmHg Right Ventricular Systolic Press 16.2 mmHg FINDINGS Left Ventricle Mildly increased left ventricular wall thickness. Left ventricular cavity size normal. Normal left ventricular systolic function with no obvious regional wall motion abnormalities. Normal left ventricular diastolic filling pattern. Left ventricular ejection fraction is estimated at 55-60 %. Right Ventricle Normal right ventricular size and function. Right ventricular systolic pressure within normal limits. Right Atrium Normal right atrial size. Left Atrium Normal left atrial size. Mitral Valve Structurally normal mitral valve. Mitral annulus calcification. No mitral stenosis, or prolapse. Mild mitral regurgitation Aortic Valve Trileaflet aortic valve. No aortic valve stenosis or regurgitation. Aortic valve sclerosis. Tricuspid Valve Structurally normal tricuspid valve. Mild tricuspid regurgitation. Pulmonic Valve Structurally normal pulmonic valve. Pericardium No pericardial effusion. Aorta Normal size aortic root and proximal ascending aorta. CONCLUSIONS 1. Normal left ventricular size and systolic function 2. Mild mitral and tricuspid regurgitation Previewed by: Dr. Freida Mendiola MD (Electronically Signed) Final Date: 15 August 2022 13:12
[2022-08-15] MEDS: CALCIUM CARBONATE 500 MG CHEWABLE PO SCH (15:02)
[2022-08-15] MEDS: MAGNESIUM OXIDE 400 MG TAB PO SCH (15:03)
--- NOTE | 2022-08-15 15:40 | P.DS ---
Providers Date of admission: 08/13/22 20:26 Expected date of discharge: 08/15/22 Attending physician: Kody Olson MD Consults: 08/13/22 20:26 Consult Physician Routine Consulting Provider: Freida Mendiola Consult Reason/Comments: cp Do you want consulting provider notified?: Yes Consult Physician Routine Consulting Provider: Amarjit Hernández Consult Reason/Comments: cp Do you want consulting provider notified?: Yes Primary care physician: Loraine Olson [facility] Course: Final Diagnoses: Acute anterior chest pain, atypical, secondary to her recent trip and fall onto her workbench; noncardiac, muscle skeletal as per cardiology. CT and troponins negative. Echo reported normal LV function. Acute exacerbation COPD, advanced emphysema. Acute hypoxic respiratory failure secondary to the above Enlarged hilar lymph node, likely reactive, further follow outpatient with pulmonary recommending repeat CT in 3 months Hypertension Depression Ongoing nicotine dependence of greater than 50 years Renal artery stenosis Sinus tachycardia secondary to pain Osteoporosis [facility] course: This is an 81-year-old female who have fallen a few weeks ago, fell on her workbench hitting her sternum with subsequent chest pain worsened with deep inspiration. Chest CT reported advanced emphysema, negative for PE, and large 1.8; right hilar lymph node, moderate arteriosclerotic changes continue into the upper abdominal aorta may be severe bilateral renal artery stenosis. Evaluated by both cardiology and pulmonary. Significant clinical improvement. Patient has been cleared by cardiology and pulmonary for discharge. Smoking cessation reinforced. Patient will be discharged home today in a stable condition with guarded prognosis, pending PT evaluation. The impression and plan of care has been dictated as directed. : I performed a history and examination of this patient, discussed the same with the dictator. I agree with the dictator's note ,documented as a scribe. Any additional findings or plans will be noted. Patient Condition at Discharge: Stable Plan - Discharge Summary Discharge Rx Participant: No New Discharge Prescriptions: New Budesonide-Formot 160-4.5 Mcg [Symbicort 160-4.5 Mcg Inhaler] 2 puff INHALATION RT-BID #1 inh Albuterol Inhaler [Ventolin Hfa Inhaler] 2 puff INHALATION QID #8 gm Nicotine 14Mg/24Hr Patch [Habitrol] 1 patch TRANSDERM DAILY patch predniSONE 10 mg PO DIRECTED #30 tab Continue Aspirin EC [Ecotrin Low Dose] 81 mg PO HS Ergocalciferol (Vitamin D2) [Drisdol (50,000 Iu)] 1,250 mcg PO Q7D [place]-3/Dha/Epa/Fish Oil [Fish Oil 1,000 mg Softgel] 1 cap PO BID-W/MEALS Raloxifene HCl 60 mg PO HS Sertraline [Zoloft] 25 mg PO HS Magnesium Oxide [Magnesium] 500 mg PO W/LUNCH Calcium Carbonate [Calcium] 600 mg PO W/LUNCH Cetirizine HCl [Zyrtec] 10 mg PO HS Metoprolol Succinate (ER) [Toprol XL] 100 mg PO DAILY Discharge Medication List Aspirin EC [Ecotrin Low Dose] 81 mg PO HS 08/13/22 [History] Calcium Carbonate [Calcium] 600 mg PO W/LUNCH 08/13/22 [History] Cetirizine HCl [Zyrtec] 10 mg PO HS 08/13/22 [History] Ergocalciferol (Vitamin D2) [Drisdol (50,000 Iu)] 1,250 mcg PO Q7D 08/13/22 [History] Magnesium Oxide [Magnesium] 500 mg PO W/LUNCH 08/13/22 [History] [place]-3/Dha/Epa/Fish Oil [Fish Oil 1,000 mg Softgel] 1 cap PO BID-W/MEALS 08/13/22 [History] Metoprolol Succinate (ER) [Toprol XL] 100 mg PO DAILY 08/14/22 [History] Raloxifene HCl 60 mg PO HS 08/14/22 [History] Sertraline [Zoloft] 25 mg PO HS 08/14/22 [History] Albuterol Inhaler [Ventolin Hfa Inhaler] 2 puff INHALATION QID #8 gm 08/15/22 [Rx] Budesonide-Formot 160-4.5 Mcg [Symbicort 160-4.5 Mcg Inhaler] 2 puff INHALATION RT-BID #1 inh 08/15/22 [Rx] Nicotine 14Mg/24Hr Patch [Habitrol] 1 patch TRANSDERM DAILY patch 08/15/22 [Rx] predniSONE 10 mg PO DIRECTED #30 tab 08/15/22 [Rx] Follow up Appointment(s)/Referral(s): Loraine Olson DO [Primary Care Provider] - 3 Days Activity/Diet/Wound Care/Special Instructions: O2 sat on room air after ambulation: No smoking
[2022-08-15 16:12] VITALS: PULSE 80
[2022-08-17] MEDS ORDERED: ERGOCALCIFEROL 1,250 MCG (50,000 IU) CAPSULE PO SCH (09:00)
== END 2022-08-15 16:48 ==
LOC: EC 14:57 → 6NMEDSUR 20:26
PROVIDERS: ADMIT Family Medicine; ATTEND Family Medicine
DX: R07.89 Other chest pain (principal); W18.30XA Fall on same level, unspecified, initial encounter; I70.0 Atherosclerosis of aorta; J44.1 Chronic obstructive pulmonary disease with (acute) exacerbation; R00.2 Palpitations; J43.9 Emphysema, unspecified; J96.01 Acute respiratory failure with hypoxia; R59.0 Localized enlarged lymph nodes; I10 Essential (primary) hypertension; F32.A Depression, unspecified; F17.200 Nicotine dependence, unspecified, uncomplicated; I70.1 Atherosclerosis of renal artery; R00.0 Tachycardia, unspecified; M81.0 Age-related osteoporosis without current pathological fracture; Z79.82 Long term (current) use of aspirin; Z79.899 Other long term (current) drug therapy; Z88.0 Allergy status to penicillin
CPT/HCPCS: 96376 ×2; 96374; 96375; 99285; 36415; 94640 ×5; 94760; 93005; 93306; 97161; 83880; 80053 ×2; 83690; 83735 ×2; 84100; 84484; 85025 ×2; 85610; 85730; 71046; 71275; G0378 ×3; S4990 ×2; J2270; J2930 ×3; J1170 ×2; J1885; Q9967